=== PATIENT | male | born 1975 | race Caucasian/White ===

== ENCOUNTER 2017-03-10 20:24 | Emergency (ER) | payer MEDICARE, OTHER ==
[~2017-03-10] VITALS: Ht 172.7 cm; Wt 99.0 kg
[~2017-03-10 20:24] MED LIST: CETI10 PO; DICL75TA PO; HYDR12.57 PO; NAPR500T PO; PRIN20TA2 PO; ZANTTAB9 PO
[2017-03-10 20:28] VITALS: BP 120/76; PULSE 91; RESP 18; TEMP 98.7; O2SAT 99
[2017-03-10] MEDS ORDERED: SODIUM CHLOR 0.9% 1000 ML INJ 1,000 ML IV ONE (20:30)
[2017-03-10] MEDS ORDERED: ONDANSETRON HCL 4 MG/2 ML VIAL IV ONE (20:30)
--- NOTE | 2017-03-10 20:31 | PD ---
HPI Chief Complaint: nausea and vomiting and diarrhea Time Seen by Provider: 20:28 Travel History International Travel<30 days: No Contact w/Intl Traveler<30days: No Traveled to known affect area: No History of Present Illness HPI This patient complains of vomiting and diarrhea. Duration 2 days. Severity is moderate. His has the same symptoms and is also a patient here. He is not having abdominal pain or presyncopal symptoms. No alleviating factors. PFSH Past Medical History Diminished Hearing: No Hypertension: Yes Immunizations Current: No Social History Alcohol Use: Yes (ONCE A WEEK) Tobacco Use: No Substance Use: No Allergies-Medications (Allergen,Severity, Reaction): Coded Allergies: No Known Allergies (Verified , 12/15/16) Reported Meds & Prescriptions Reported Meds & Active Scripts Active Zofran (Ondansetron HCl) 4 Mg Tab 4 Mg PO Q6HR PRN Cetirizine (Cetirizine HCl) 10 Mg Tab 10 Mg PO DAILY Naproxen 500 Mg Tab 500 Mg PO BID PRN Prinivil (Lisinopril) 20 Mg Tab 20 Mg PO DAILY Hydrochlorothiazide 12.5 Mg Cap 12.5 Mg PO DAILY Review of Systems General / Constitutional: No: Fever Eyes: No: Visual changes HENT: No: Headaches Cardiovascular: No: Chest Pain or Discomfort Respiratory: No: Shortness of Breath Gastrointestinal: Positive: Nausea, Vomiting, Diarrhea, No: Abdominal Pain Genitourinary: No: Dysuria Musculoskeletal: No: Pain Skin: No Rash Neurologic: No: Weakness Psychiatric: No: Depression Endocrine: No: Polydipsia Hematologic/Lymphatic: No: Easy Bruising Physical Exam Narrative GENERAL: Well-nourished, well-developed patient in no apparent distress. SKIN: Focused skin assessment reveals psoriasis rash primarily on the trunk. No nodules. Skin is Warm and dry. HEAD: Atraumatic. Normocephalic. EYES: Pupils equal and round. No scleral icterus. No injection or drainage. ENT: No nasal bleeding or discharge. Mucous membranes pink and moist. NECK: Trachea midline. No JVD. CARDIOVASCULAR: Regular rate and rhythm. No murmur appreciated. RESPIRATORY: No accessory muscle use. Clear to auscultation. Breath sounds equal bilaterally. GASTROINTESTINAL: Abdomen soft, non-tender, nondistended. Hepatic and splenic margins not palpable. MUSCULOSKELETAL: No obvious deformities. No clubbing. No cyanosis. No edema. NEUROLOGICAL: Awake and alert. No obvious cranial nerve deficits. Motor grossly within normal limits. Normal speech. PSYCHIATRIC: Appropriate mood and affect; insight and judgment normal. Data Data Last Documented VS Vital Signs Date Time Temp Pulse Resp B/P Pulse Ox O2 Delivery O2 Flow Rate FiO2 03/10/17 21:31 87 18 123/64 98 Room Air 03/10/17 20:28 98.7 Orders Iv Access Insert/Monitor (03/10/17 20:28) Complete Blood Count With Diff (03/10/17 20:28) Basic Metabolic Panel (Bmp) (03/10/17 20:28) Ondansetron Inj (Zofran Inj) (03/10/17 20:30) Sodium Chlor 0.9% 1000 Ml Inj (Ns 1000 M (03/10/17 20:30) Labs Laboratory Tests Test 03/10/17 20:40 White Blood Count 8.5 TH/MM3 Red Blood Count 5.77 MIL/MM3 Hemoglobin 13.8 GM/DL Hematocrit 42.6 % Mean Corpuscular Volume 73.8 FL Mean Corpuscular Hemoglobin 24.0 PG Mean Corpuscular Hemoglobin 32.5 % Concent Red Cell Distribution Width 16.2 % Platelet Count 355 TH/MM3 Mean Platelet Volume 7.8 FL Neutrophils (%) (Auto) 59.7 % Lymphocytes (%) (Auto) 30.5 % Monocytes (%) (Auto) 8.4 % Eosinophils (%) (Auto) 1.0 % Basophils (%) (Auto) 0.4 % Neutrophils # (Auto) 5.1 TH/MM3 Lymphocytes # (Auto) 2.6 TH/MM3 Monocytes # (Auto) 0.7 TH/MM3 Eosinophils # (Auto) 0.1 TH/MM3 Basophils # (Auto) 0.0 TH/MM3 CBC Comment DIFF FINAL Differential Comment Sodium Level 133 MEQ/L Potassium Level 4.3 MEQ/L Chloride Level 101 MEQ/L Carbon Dioxide Level 23.5 MEQ/L Anion Gap 9 MEQ/L Blood Urea Nitrogen 17 MG/DL Creatinine 1.12 MG/DL Estimat Glomerular Filtration 72 ML/MIN Rate Random Glucose 94 MG/DL Calcium Level 8.4 MG/DL MDM Medical Decision Making Medical Screen Exam Complete: Yes Emergency Medical Condition: Yes Medical Record Reviewed: Yes Differential Diagnosis Gastroenteritis, colitis, food poisoning, dehydration Narrative Course I have reviewed the patient's electronic medical record. IV placed CBC is normal Metabolic profile is normal I gave him IV Zofran and 1 L normal saline IV bolus Patient has had no vomiting since he's been here Zofran prescribed Gradual resolution is expected Diagnosis Primary Impression: Nausea vomiting and diarrhea Additional Instructions: The patient was advised to follow up with their physician and return if they worsen. I have recommended clear liquids for 24 hours, then gradually advance as tolerated. Med/Other Pt SpecificInfo: Other Scripts Ondansetron (Zofran)4 Mg Tab4 Mg PO Q6HR PRN (NAUSEA OR VOMITING) #10 TAB Ref 0 Prov:Arsalan De La Cruz MD 03/10/17 Disposition: 01 DISCHARGE HOME Condition: Stable Arsalan De La Cruz MD Mar 10, 2017 20:31
[2017-03-10 20:59] LABS: AUTOMATED NEUTROPHIL # 5.1 TH/MM3 (1.8-7.7); BASOPHIL % 0.4 % (0.0-2.0); EOSINOPHIL # 0.1 TH/MM3 (0-0.4); HEMATOCRIT 42.6 % (39.0-51.0); HEMO FLAGS DIFF FINAL; LYMPH % 30.5 % (9.0-44.0); LYMPHOCYTE # 2.6 TH/MM3 (1.0-4.8); MEAN CELL VOLUME 73.8 FL (80.0-100.0); MEAN CORPUSCULAR HGB CONC 32.5 % (32.0-36.0); MONO % 8.4 % (0.0-8.0); NEUT % 59.7 % (16.0-70.0); PLATELET COUNT 355 TH/MM3 (150-450); RED BLOOD COUNT 5.77 MIL/MM3 (4.50-5.90); RED CELL DISTRIBUTION WIDTH 16.2 % (11.6-17.2); WHITE BLOOD COUNT 8.5 TH/MM3 (4.0-11.0)
[2017-03-10 21:17] LABS: BICARBONATE 23.5 MEQ/L (21.0-32.0); POTASSIUM 4.3 MEQ/L (3.5-5.1)
[2017-03-10 21:31] VITALS: BP 123/64; PULSE 87; RESP 18; O2SAT 98
[2017-03-10] MEDS ORDERED: ZOFR4TAB PO (22:04)
[2017-03-10 23:20] VITALS: BP 130/74
[2017-03-15] MEDS ORDERED: FERR325T8 PO (16:30)
[2017-03-15] MEDS ORDERED: HYDR12.57 PO (16:39)
[2017-03-15] MEDS ORDERED: CETI10 PO (16:39)
[2017-03-15] MEDS ORDERED: NAPR500T PO (16:39)
[2017-03-15] MEDS ORDERED: TYLE325T PO (16:39)
[2017-03-15] MEDS ORDERED: PRIN20TA2 PO (16:39)
== END 2017-03-10 23:21 | disposition home or self-care (01) ==
LOC: NEPD 20:24
DX: R11.2 Nausea with vomiting, unspecified (principal); R19.7 Diarrhea, unspecified; I10 Essential (primary) hypertension; Z79.899 Other long term (current) drug therapy
CPT/HCPCS: 80048; 85025; 96361; 96374; 99284; J2405; J7030